=== PATIENT | female | born 1985 | race Caucasian/White ===

== ENCOUNTER 2020-03-20 06:09 | Inpatient (IN) | payer BC ==
[2020-03-20] MEDS ORDERED: LIDOCAINE 0.5% (PF) 5 MG/ML (50 ML SDV) SQ PRN (06:22)
[2020-03-20] MEDS ORDERED: CARBOPROST TROMETHAMINE 250 MCG/ML 1 ML AMP IM PRN (06:22)
[2020-03-20] MEDS ORDERED: METHYLERGONOVINE 0.2 MG/ML 1 ML AMP IM PRN (06:22)
[2020-03-20] MEDS ORDERED: OXYTOCIN 10 UNIT/ML 1 ML VIAL IM PRN (06:22)
[2020-03-20] MEDS ORDERED: TERBUTALINE 1 MG/ML VIAL SQ PRN (06:22)
[2020-03-20] MEDS ORDERED: AMPICILLIN 2,000 MG in SODIUM CHLORIDE 0.9% 100 ML IVPB STA (06:26)
[2020-03-20] MEDS ORDERED: OXYTOCIN 30 UNITS/500 ML NS 30 UNIT in SALINE 1 500ML.BAG IV SCH (06:30)
[2020-03-20 06:41] LABS: Basophils % (A) 0 %; Eosinophils # (A) 0.5 k/uL (0-0.7); Eosinophils % (A) 4 %; HCT 40.3 % (34.0-46.0); HGB 13.3 gm/dL (11.4-16.0); Lymphocytes % (A) 17 %; MCH 29.7 pg (25.0-35.0); MCHC 32.9 g/dL (31.0-37.0); MCV 90.4 fL (80.0-100.0); Mean Platelet Volume 8.5; Monocytes # (A) 0.5 k/uL (0-1.0); Monocytes % (A) 4 %; Neutrophils # (A) 9.1 k/uL (1.3-7.7); Neutrophils % (A) 75 %; Platelet Count 189 k/uL (150-450); RBC 4.46 m/uL (3.80-5.40); RDW 13.4 % (11.5-15.5); WBC 12.1 k/uL (3.8-10.6)
[2020-03-20] MEDS: LACTATED RINGERS 1,000 ML IV SCH ×3 (06:47→14:55)
--- NOTE | 2020-03-20 08:35 | P.HPOB ---
History of Present Illness H&P Date: 03/20/20 Chief Complaint: IUP at 39 weeks, chronic hypertension This is a 34-year-old 1 para 0 that presents to labor and delivery at 39 weeks for induction of labor. Patient has a known past medical history of chronic hypertension has been taking labetalol throughout the . testing has been reassuring throughout. care has been essentially uncomplicated. On bloodwork this patient has a blood type of A+, rubella status immune, RPR nonreactive, hepatitis B surface antigen negative, HIV negative she has undergone several preeclampsia panels all negative in nature. She did fail her 1 hour Glucola with a result of 141 and subsequently passed her 3 hour. She did receive her T Dap vaccine on 01/21. Group beta strep culture was negative on 02/26. Review of Systems Constitutional: Denies chills, Denies fatigue, Denies fever Ears, nose, mouth and throat: Denies headache Cardiovascular: Reports leg edema Respiratory: Denies dyspnea Gastrointestinal: Denies constipation, Denies diarrhea, Denies nausea, Denies vomiting Genitourinary: Reports Past Medical History Past Medical History: Hypertension Additional Past Medical History / Comment(s): SEASONAL ALLERGIES. FAMILY HX OF COLON CANCER History of Any Multi-Drug Resistant Organisms: None Reported Additional Past Surgical History / Comment(s): WISDOM TEETH REMOVED UNDER ANESTHESIA Past Anesthesia/Blood Transfusion Reactions: No Reported Reaction Past Psychological History: No Psychological Hx Reported Smoking Status: Never smoker Past Alcohol Use History: Occasional Past Drug Use History: None Reported - Past Family History Father Family Medical History: Cancer Medications and Allergies Home Medications Medication Instructions Recorded Confirmed Type Cetirizine HCl [Zyrtec] 10 mg PO HS 12/24/15 12/29/15 History Labetalol [Trandate] 100 mg PO BID 03/20/20 03/20/20 History Pnv No.95/Ferrous Fum/Folic AC 1 each PO 03/20/20 History [ Multivitamin Tablet] Allergies Allergy/AdvReac Type Severity Reaction Status Date / Time Sulfa (Sulfonamide Allergy Rash/Hives Verified 03/20/20 06:21 Antibiotics) Exam Osteopathic Statement: *. No significant issues noted on an osteopathic structural exam other than those noted in the History and Physical/Consult. 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 heart tones returned be category 1 and she is rose every 3 minutes. On cervical exam she is 4/50/-3 station amniotomy is performed and clear fluid was obtained. Results Result Diagrams: 03/20/20 06:15 Abnormal Lab Results - Last 24 Hours (Table) 03/20/20 Range/Units 06:15 WBC 12.1 H (3.8-10.6) k/uL Neutrophils # 9.1 H (1.3-7.7) k/uL Assessment and Plan (1) Term Current Visit: Yes Status: Acute Code(s): Z34.90 - ENCNTR FOR SUPRVSN OF NORMAL , UNSP, UNSP TRIMESTER SNOMED Code(s): 33168055 (2) Chronic hypertension Current Visit: Yes Status: Acute Code(s): I10 - ESSENTIAL (PRIMARY) HYPERTENSION SNOMED Code(s): 65056869 Plan: This pleasant 34-year-old 1 para 0 at 39 weeks of gestation with known history of chronic hypertension presents to labor and delivery for induction of labor. Patient is admitted and Pitocin induction is begun per hospital prot ocol. Analgesia of Stadol versus epidural are discussed and patient will consider.
[2020-03-20] MEDS: AMPICILLIN 1,000 MG in SODIUM CHLORIDE 0.9% 50 ML IVPB SCH ×2 (11:22→15:22)
[2020-03-20] MEDS ORDERED: SODIUM CHLORIDE 0.9% 100 ML BAG ONE (14:55)
[2020-03-20] MEDS ORDERED: ROPIVACAINE 5MG/ML 20ML VIAL ONE (14:55)
[2020-03-20] MEDS ORDERED: fentaNYL (PF) 50 MCG/ML 5 ML AMP ONE (14:55)
[2020-03-20] MEDS ORDERED: CITRIC ACID-SODIUM CITRATE 15 ML CUP PO ONE (19:36)
[2020-03-20] MEDS ORDERED: MORPHINE SULFATE (PF) 0.3 MG/0.3 ML SYR ONE (20:01)
[2020-03-20] MEDS ORDERED: OXYTOCIN 10 UNIT/ML 1 ML VIAL ONE (20:01)
[2020-03-20] MEDS ORDERED: ONDANSETRON 4 MG/2 ML VIAL ONE (20:01)
[2020-03-20] MEDS ORDERED: IBUPROFEN IV 800 MG in SODIUM CHLORIDE 0.9% 250 ML IV ONE (20:46)
--- NOTE | 2020-03-20 20:46 | P.OP ---
Date of Procedure: 03/20/20 Preoperative Diagnosis: IUP @ 39 weeks, chronic HTN, arrest of descent and dilation Postoperative Diagnosis: same Procedure(s) Performed: Primary Anesthesia: epidural Surgeon: Genoveva Wilks Casino Investigator #1: Monster Bhatt Estimated Blood Loss (ml): 400 IV fluids (ml): 750 Urine output (ml): 50 Pathology: other (placenta) Condition: stable Disposition: PACU Indications for Procedure: This is a 34-year-old 1 para 0 that presented to labor and delivery for induction of labor secondary to chronic hypertension. Patient was admitted to labor and delivery and noted to be 3 cm. Amniotomy was performed and patient progressed to 4 cm. Patient made minimal change through labor but became uncomfortable requesting epidural. Epidural was placed by the anesthesia Department without difficulty. Patient was noted to be 5 cm around 1400. At 1730 patient was noted to still be 5 cm. Discussion with patient regarding arrest of descent and dilation and suspected cephalopelvic disproportion. Patient states understanding and wishes to proceed with primary . C- section is discussed for surgery reviewed and questions are answered. Operative Findings: Normal uterus tubes and ovaries were appreciated, viable male delivered at 2014, weight of 7 lbs. 9 oz. with Apgars of 9 and 9 at one and 5 minutes respectively. Description of Procedure: Patient was taken to the operating suite where epidural anesthesia was found be adequate. She was prepped and draped in normal sterile fashion in the dorsal supine position. Sanchez catheter had been placed prior to entry into the operating suite. A Pfannenstiel skin incision was made with the scalpel and carried through the underlying layer of fascia. The fascia was incised in the midline and extended laterally. The superior aspect of the fascial incision was then grasped modesto clamps, elevated and underlying rectus muscles dissected off sharply. Attention was turned the inferior aspect of the fascial incision which was grasped modesto clamps, elevated and underlying rectus muscle was dissected off sharply once again. The rectus muscles were in the midline the peritoneum was identified and entered. The bladder blade was then inserted into the pelvis. The vesicouterine peritoneum was identified and the bladder flap was then created using sharp and blunt dissection. A scalpel was then used to make a hysterotomy incision the head was encountered and the infant was delivered in the usual fashion. The umbilical cord was doubly clamped and cut and infant was handed off to awaiting RN. The placenta was then delivered manually and the uterus cleared of all clots and debris. The uterine incision was then closed with 0 Vicryl in a running locked fashion. A second layer of suture was used to obtain hemostasis. The pelvis then irrigated copiously. The uterus was then returned to the abdomen. The gutters were then cleared of all clots and debris. The hysterotomy incision was inspected hemostasis was appreciated. The fascia was then closed in a running fashion from one lateral edge the midline and the other lateral edge the midline. Subcu tissue was irrigated and found to be hemostatic and closed with 3-0 Vicryl in a running fashion. The skin was then closed with 4-0 Vicryl in a subcuticular fashion. Steri-Strips and sterile dressing were applied. Patient and tolerated delivery well, all counts were noted to be correct 2 at the end of the procedure.
[2020-03-20] MEDS ORDERED: NALOXONE 0.4 MG/ML 1 ML VIAL IV PRN (20:51)
[2020-03-20] MEDS ORDERED: ZOLPIDEM 5 MG TAB PO PRN (20:51)
[2020-03-20] MEDS ORDERED: diphenhydrAMINE 25 MG CAP PO PRN (20:51)
[2020-03-20] MEDS ORDERED: LACTATED RINGERS 1,000 ML IV SCH (20:51)
[2020-03-20] MEDS ORDERED: diphenhydrAMINE 50 MG CAP PO PRN (20:51)
[2020-03-20] MEDS ORDERED: METOCLOPRAMIDE 5 MG/ML 2 ML VIAL IVP PRN (20:51)
[2020-03-20] MEDS ORDERED: HYDROcodone/APAP 5-325MG 1 EACH TAB PO PRN (20:51)
[2020-03-20] MEDS ORDERED: OXYTOCIN 20 UNITS/1000 ML NS 1,000 ML IV SCH (20:51)
[2020-03-20] MEDS ORDERED: SIMETHICONE 80 MG CHEWABLE PO PRN (20:51)
[2020-03-20] MEDS ORDERED: ONDANSETRON 4 MG/2 ML VIAL IVP PRN (20:51)
[2020-03-20] MEDS ORDERED: ACETAMINOPHEN IV (For NPO) 1,000 MG in EMPTY BAG 1 BAG IVPB ONE (20:51)
[2020-03-20] MEDS ORDERED: diphenhydrAMINE 50 MG/ML 1 ML VIAL IVP PRN ×2 (20:51)
[2020-03-21] MEDS: SENNOSIDES-DOCUSATE SODIUM 1 EACH TAB PO SCH ×3 (01:43→19:41)
[2020-03-21 06:42] LABS: Basophils % (A) 0 %; Eosinophils # (A) 0.2 k/uL (0-0.7); Eosinophils % (A) 1 %; HCT 35.8 % (34.0-46.0); HGB 11.6 gm/dL (11.4-16.0); Lymphocytes # (A) 1.5 k/uL (1.0-4.8); Lymphocytes % (A) 10 %; MCH 29.8 pg (25.0-35.0); MCHC 32.4 g/dL (31.0-37.0); MCV 92.1 fL (80.0-100.0); Mean Platelet Volume 8.7; Monocytes # (A) 0.5 k/uL (0-1.0); Monocytes % (A) 4 %; Neutrophils # (A) 12.2 k/uL (1.3-7.7); Neutrophils % (A) 84 %; Platelet Count 155 k/uL (150-450); RBC 3.89 m/uL (3.80-5.40); RDW 13.4 % (11.5-15.5); WBC 14.5 k/uL (3.8-10.6)
--- NOTE | 2020-03-21 10:04 | P.PNOBGPC ---
Subjective - Subjective Principal diagnosis: POD 1 LTCS Interval history: patient did well overnight, she is ambulating without difficulty., Awaiting spontaneous void. She is tolerating a regular diet without nausea or vomiting. She states her pain is well-controlled. Lochia is minimal. Patient reports: Reports appetite normal, Reports pain well controlled, Reports ambulating normally : doing well Objective - Vital Signs Latest vital signs: Vital Signs Temp Pulse Resp BP Pulse Ox 03/21/20 08:00 98.0 F 73 16 123/76 98 03/21/20 04:00 98.6 F 69 16 97 03/20/20 22:45 62 16 116/58 97 03/20/20 22:15 74 16 107/58 03/20/20 21:45 77 16 102/55 96 03/20/20 21:30 67 16 106/58 100 03/20/20 21:15 60 16 93/52 100 03/20/20 21:00 60 14 88/52 96 03/20/20 20:45 97.1 F L 66 14 100/55 96 Intake and Output 03/20/20 03/21/20 03/21/20 22:59 06:59 14:59 Intake Total 240 450 Balance 240 450 Intake: IV 250 Oral 240 200 - Exam Extremities: Present: normal, edema Abdomen: Present: normal appearance Incision: Present: normal, intact Uterus: Present: normal, firm - Labs Labs: Abnormal Lab Results - Last 24 Hours (Table) 03/21/20 Range/Units 06:11 WBC 14.5 H (3.8-10.6) k/uL Neutrophils # 12.2 H (1.3-7.7) k/uL Assessment and Plan (1) Term Current Visit: Yes Status: Acute Code(s): Z34.90 - ENCNTR FOR SUPRVSN OF NORMAL , UNSP, UNSP TRIMESTER SNOMED Code(s): 33835226 (2) Chronic hypertension Current Visit: Yes Status: Acute Code(s): I10 - ESSENTIAL (PRIMARY) HYPERTENSION SNOMED Code(s): 98612669 (3) Arrest of descent, delivered, current hospitalization Current Visit: Yes Status: Acute Code(s): O62.1 - SECONDARY UTERINE INERTIA SNOMED Code(s): 23971753 (4) S/P section Current Visit: Yes Status: Acute Code(s): Z98.891 - HISTORY OF UTERINE SCAR FROM PREVIOUS SURGERY SNOMED Code(s): 184629961 Plan: patient is doing well postoperatively, await spontaneous void. We will encourage increased ambulation today and anticipate discharge home tomorrow. Continue routine postoperative care.
[2020-03-21] MEDS: IBUPROFEN 600 MG TAB PO PRN ×2 (12:33→23:07)
[2020-03-21] MEDS: PRENATAL VIT-IRON-FOLIC ACID 1 EACH CAP PO SCH (13:46)
[2020-03-21] MEDS: ACETAMINOPHEN TAB 325 MG TAB PO PRN (19:41)
[2020-03-22] MEDS: ACETAMINOPHEN TAB 325 MG TAB PO PRN (04:09)
[2020-03-22] MEDS: IBUPROFEN 600 MG TAB PO PRN (07:57)
[2020-03-22 08:17] VITALS: BP 131/86; PULSE 74; RESP 16; TEMP 97.8
--- NOTE | 2020-03-22 08:34 | P.DS ---
Providers Date of admission: 03/20/20 06:09 Expected date of discharge: 03/22/20 Attending physician: Genoveva Wilks Primary care physician: Stated None - Discharge Diagnosis(es) (1) Term Current Visit: Yes Status: Acute (2) Chronic hypertension Current Visit: Yes Status: Acute (3) Arrest of descent, delivered, current hospitalization Current Visit: Yes Status: Acute (4) S/P section Current Visit: Yes Status: Acute Hospital Course: This is a pleasant 34-year-old 1 para 0 with a history of chronic hypertension that presented to the hospital for induction of labor. Patient had been controlled on labetalol. Patient was admitted and Pitocin induction of labor was begun. Patient was initially noted to be 3 cm dilated once regular contractions were noted amniotomy is performed and clear fluid was obtained. Patient progressed through labor eventually becoming uncomfortable and requesting epidural placement. Epidural was placed without difficulty. Patient was noted to be 5 cm at that time. After approximately 6 hours no further cervical dilation or descent of the head was noted. Discussion with annalise vee regarding primary secondary to arrest of descent and dilation was discussed. Patient wished to proceed with primary . was performed without difficulty for further details on the please see the operative report. Patient delivered a liveborn male at 2015, weight of 7 lbs. 9 oz. and Apgars of 9 and 9 at one and 5 minutes respectively on 03/20. Patient's postoperative course has been essentially uneventful. Blood pressures have been controlled without oral labetalol. On this postoperative day #2 patient is ambulating and voiding without difficulty. She is tolerating a regular diet without nausea or vomiting. She states her lochia is minimal. She would like discharge home. Patient Condition at Discharge: Good Plan - Discharge Summary New Discharge Prescriptions: No Action Cetirizine HCl [Zyrtec] 10 mg PO HS Labetalol [Trandate] 100 mg PO BID Pnv No.95/Ferrous Fum/Folic AC [ Multivitamin Tablet] 1 each PO Discharge Medication List Cetirizine HCl [Zyrtec] 10 mg PO HS 12/24/15 [History] Labetalol [Trandate] 100 mg PO BID 03/20/20 [History] Pnv No.95/Ferrous Fum/Folic AC [ Multivitamin Tablet] 1 each PO 03/20/20 [History] Follow up Appointment(s)/Referral(s): Genoveva Wilks DO [Doctor of Osteopathic Medicine] - 1 Week Patient Instructions/Handouts: (DC), (GEN) Discharge Disposition: HOME SELF-CARE
[2020-03-22] MEDS: SENNOSIDES-DOCUSATE SODIUM 1 EACH TAB PO SCH (17:03)
[2020-03-22] MEDS: PRENATAL VIT-IRON-FOLIC ACID 1 EACH CAP PO SCH (17:03)
== END 2020-03-22 12:50 | disposition home or self-care (01) | DRG 788 ==
LOC: 4FBP 06:09
PROVIDERS: ADMIT Obstetrics & Gynecology Obstetrics; ATTEND Obstetrics & Gynecology Obstetrics
PROC: 10D00Z1 Extraction of Products of Conception, Low, Open Approach (ICD-10-PCS; principal; 2020-03-20 06:15)
PROC: 10907ZC Drainage of Amniotic Fluid, Therapeutic from Products of Conception, Via Natural or Artificial Opening (ICD-10-PCS; principal; 2020-03-20 06:15)
PROC: 3E0R3BZ Introduction of Anesthetic Agent into Spinal Canal, Percutaneous Approach (ICD-10-PCS; principal; 2020-03-20 06:15)
PROC: 00HU33Z Insertion of Infusion Device into Spinal Canal, Percutaneous Approach (ICD-10-PCS; principal; 2020-03-20 06:15)
PROC: 3E033VJ Introduction of Other Hormone into Peripheral Vein, Percutaneous Approach (ICD-10-PCS; principal; 2020-03-20 06:15)
DX: O10.92 Unspecified pre-existing hypertension complicating childbirth (principal); J30.2 Other seasonal allergic rhinitis; O62.1 Secondary uterine inertia; Z37.0 Single live birth; Z3A.39 39 weeks gestation of pregnancy; Z79.899 Other long term (current) drug therapy; Z97.3 Presence of spectacles and contact lenses; Z98.818 Other dental procedure status; Z88.2 Allergy status to sulfonamides; Z80.0 Family history of malignant neoplasm of digestive organs
CPT/HCPCS: 85025; 86850; 86900; 86901

== ENCOUNTER 2022-01-06 10:45 | Day surgery (SDC) | payer BC ==
[~2022-01-06 10:45] MED LIST: LACTATED RINGERS 1,000 ML IV SCH; LIDOCAINE 1% (10MG/ML) FOR IV START INTRADERMA PRN
[2022-01-06 11:15] VITALS: RESP 16; TEMP 98.1
[2022-01-06] MEDS ORDERED: MIDAZOLAM 2 MG/2 ML VIAL ONE (11:55)
[2022-01-06] MEDS ORDERED: PROPOFOL 10 MG/ML 20 ML VIAL IV ONE (11:55)
[2022-01-06] MEDS ORDERED: fentaNYL (PF) 50 MCG/ML 2 ML AMP ONE (11:55)
--- NOTE | 2022-01-06 12:17 | P.PCN ---
Date of Procedure: 01/06/22 Procedure(s) Performed: BRIEF HISTORY: Patient is a 36-year-old pleasant white female scheduled for an elective colonoscopy as a part of evaluation of prior history of colon polyps and family history of colon cancer diagnosed in her father at age 50 PROCEDURE PERFORMED: Colonoscopy. PREOPERATIVE DIAGNOSIS: History of colon polyps and family history of colon cancer. IV sedation per Anesthesia. PROCEDURE: After informed consent was obtained, the patient, was brought into the endoscopy unit. IV sedation was administered by Anesthesia under continuous monitoring. Digital rectal examination was normal. Initially the Olympus CF-160 flexible video colonoscope was then inserted in the rectum, gradually advanced into the cecum without any difficulty. Careful examination was performed as the scope was gradually being withdrawn. Ileocecal valve and the appendiceal orifice were visualized and appeared normal. Prep was excellent. Mucosa of the cecum, ascending colon, transverse colon, descending colon, sigmoid colon, and rectum appeared normal. Retroflexion was performed in the rectum and no lesions were seen. The patient tolerated the procedure well. IMPRESSION: Normal-appearing colon from rectum to cecum with no evidence of colorectal neoplasia. RECOMMENDATIONS: Findings of this examination were discussed with the patient as well as her family. She was advised to have a repeat colonoscopy in 5 years from now because of the strong family history of colon cancer.
[2022-01-06 12:38] VITALS: BP 121/78; PULSE 71
== END 2022-01-06 12:57 ==
LOC: ORWHC2ENDO 10:45
PROVIDERS: ATTEND Internal Medicine Gastroenterology
DX: Z12.11 Encounter for screening for malignant neoplasm of colon (principal); Z86.010 Personal history of colon polyps; Z80.0 Family history of malignant neoplasm of digestive organs; I10 Essential (primary) hypertension; Z79.899 Other long term (current) drug therapy; Z88.2 Allergy status to sulfonamides; Z98.891 History of uterine scar from previous surgery
CPT/HCPCS: 81025; J2250; J3010; J2704; G0105; 45378